=== PATIENT | female | born 1985 | race Caucasian/White ===

== ENCOUNTER → 2016-08-05 | Outpatient (REF) | payer BC ==
[~2016-08-05] MED LIST: ACET50TA PO; IBUP80TA PO; VITAPRTA PO
== END ==
LOC: M LAB REF 15:11
PROVIDERS: ATTEND Specialist
DX: Z12.4 Encounter for screening for malignant neoplasm of cervix (principal); R85.612 Low grade squamous intraepithelial lesion on cytologic smear of anus (LGSIL)
CPT/HCPCS: 87491; 87591; G0123

== ENCOUNTER → 2016-08-20 | Outpatient (REF) | payer BC | LOC: M LAB REF 10:11 | PROVIDERS: ATTEND Physician Assistant Medical | DX: J02.9 Acute pharyngitis, unspecified (principal) ==

== ENCOUNTER → 2016-09-23 | Outpatient (REF) | payer BC | LOC: M LAB REF 16:49 | PROVIDERS: ATTEND Specialist | DX: R87.612 Low grade squamous intraepithelial lesion on cytologic smear of cervix (LGSIL) (principal) ==

== ENCOUNTER → 2016-10-15 | Outpatient (REF) | payer BC ==
[2016-10-15 20:20] LABS: BASO % 0.4 % (0.0-1.0); EOS # 0.1 K/mm3 (0.0-0.50); EOS % 1.7 % (0.0-3.0); LARGE UNSTAINED CELL # 0.2 K/mm3 (0.0-0.4); LARGE UNSTAINED CELL % 1.9 % (0.0-4.0); LYMPH # 2.6 K/mm3 (1.5-4.5); LYMPH % 31.5 % (24.0-44.0); MEAN CORPUSCULAR HEMOGLOBIN 27.4 pg (27.0-33.0); MEAN CORPUSCULAR HGB CONC 31.7 g/dl (32.0-36.5); MEAN CORPUSCULAR VOLUME 86.6 fl (80.0-96.0); MONO # 0.3 K/mm3 (0.0-0.8); NEUTROPHILS # 4.7 K/mm3 (1.8-7.7); NEUTROPHILS % 60.4 % (36.0-66.0); PLATELET COUNT, AUTOMATED 275 k/mm3 (150-450); RED CELL DISTRIBUTION WIDTH 13.6 % (11.5-14.5); WHITE BLOOD COUNT 7.8 K/mm3 (4.0-10.0)
[2016-10-15 20:53] LABS: ALBUMIN 3.8 GM/DL (3.2-5.2); ALBUMIN/GLOBULIN RATIO 0.93 (1.00-1.93); ALKALINE PHOSPHATASE 67 U/L (45-117); ALT/SGPT 33 U/L (12-78); ANION GAP 5 MEQ/L (8-16); AST/SGOT 17 U/L (15-37); BILIRUBIN,TOTAL 0.8 MG/DL (0.2-1.0); BLOOD UREA NITROGEN 15 MG/DL (7-18); CALCIUM LEVEL 9.1 MG/DL (8.5-10.1); CARBON DIOXIDE LEVEL 29 MEQ/L (21-32); CHLORIDE LEVEL 106 MEQ/L (98-107); CHOLESTEROL LEVEL 172 MG/DL (<200); CREATININE FOR GFR 0.75 MG/DL (0.55-1.02); GLOMERULAR FILTRATION RATE > 60.0 (>60); GLUCOSE, FASTING 81 MG/DL (70-105); POTASSIUM SERUM 5.1 MEQ/L (3.5-5.1); SODIUM LEVEL 140 MEQ/L (136-145); TOTAL PROTEIN 7.9 GM/DL (6.4-8.2); TRIGLYCERIDES LEVEL 95 MG/DL (<150)
== END ==
LOC: M LABDRWAD 10:26
PROVIDERS: ATTEND Family Medicine
DX: Z00.00 Encounter for general adult medical examination without abnormal findings (principal)

== ENCOUNTER → 2017-04-05 | Outpatient (CLI) | payer BC ==
--- NOTE | 2017-04-05 11:40 | REP ---
LEFT WRIST, FOUR VIEW: HISTORY: Pain. There is no acute fracture or dislocation. The joint spaces are normal in appearance. IMPRESSION: There is no acute fracture or dislocation. Signed by Wale Courtney MD 04/05/2017 11:49 A
== END ==
LOC: M ADAMS 10:34
PROVIDERS: ATTEND Physician Assistant
DX: M25.532 Pain in left wrist (principal)

== ENCOUNTER → 2017-05-20 | Outpatient (REF) | payer BC | LOC: M LAB REF 13:11 | DX: Z12.4 Encounter for screening for malignant neoplasm of cervix (principal) | CPT/HCPCS: G0123 ==

== ENCOUNTER → 2018-06-22 | Outpatient (REF) | payer BC ==
[2018-06-25 00:06] LABS: HPV HYBRID CAPTURE II Negative (Negative)
== END ==
LOC: M LAB REF 19:04
PROVIDERS: ATTEND Specialist
DX: Z12.4 Encounter for screening for malignant neoplasm of cervix (principal)
CPT/HCPCS: 87624; G0123

== ENCOUNTER → 2018-07-04 | Outpatient (CLI) | payer BC | LOC: M LAB 11:27 | PROVIDERS: ATTEND Specialist | DX: Z01.89 Encounter for other specified special examinations (principal) ==

== ENCOUNTER → 2018-10-18 | Outpatient (CLI) | payer BC, OTHER ==
[~2018-10-18] MED LIST changes: -ACET50TA PO; +MAPA500T17 PO
[2018-10-18 09:28] LABS: HEMATOCRIT 35.2 % (36.0-47.0); MEAN CORPUSCULAR HEMOGLOBIN 25.9 pg (27.0-33.0); MEAN CORPUSCULAR HGB CONC 31.3 g/dl (32.0-36.5); MEAN CORPUSCULAR VOLUME 82.8 fl (80.0-96.0); PLATELET COUNT, AUTOMATED 268 10^3/uL (150-450); RED BLOOD COUNT 4.25 10^6/uL (4.00-5.40); WHITE BLOOD COUNT 5.6 10^3/uL (4.0-10.0)
[2018-10-18 10:05] LABS: ALBUMIN 3.7 GM/DL (3.2-5.2); ALT/SGPT 33 U/L (12-78); BILIRUBIN,TOTAL 0.9 MG/DL (0.2-1.0); BLOOD UREA NITROGEN 13 MG/DL (7-18); CALCIUM LEVEL 9.1 MG/DL (8.5-10.1); CARBON DIOXIDE LEVEL 28 MEQ/L (21-32); CHLORIDE LEVEL 107 MEQ/L (98-107); CREATININE FOR GFR 0.73 MG/DL (0.55-1.30); GLOMERULAR FILTRATION RATE > 60.0 (>60); GLUCOSE, FASTING 89 MG/DL (70-100); HCG, SERUM QUANTITATIVE < 1.0 MIU/ML; POTASSIUM SERUM 4.3 MEQ/L (3.5-5.1); SODIUM LEVEL 140 MEQ/L (136-145); THYROID STIMULATING HORMONE 0.924 uIU/ML (0.358-3.740); TOTAL PROTEIN 7.3 GM/DL (6.4-8.2)
[2018-10-18 10:07] LABS: TESTOSTERONE 16 NG/DL (14-76); TOTAL 25(OH) VITAMIN D 24.3 NG/ML (30.0-100.0)
[2018-10-18 10:08] LABS: PROGESTERONE 0.21 NG/ML; PROLACTIN 6.7 NG/ML
[2018-10-18 10:10] LABS: FOLLICLE STIMULATING HORMONE 7.3 mIU/mL
[2018-10-18 10:16] LABS: RUBELLA IgG QUALITATIVE IMMUNE (IMMUNE)
[2018-10-18 10:20] LABS: HEPATITIS B SURFACE ANTIGEN NEGATIVE (NEGATIVE)
[2018-10-18 10:48] LABS: HIV 1&2 SCREEN CENTAUR NEGATIVE (NEGATIVE)
[2018-10-22 14:10] LABS: ANTI MULLERIAN HORMONE 1.16 ng/mL (.); DEHYDROEPIANDROSTERONE SULFATE 136.5 ug/dL (84.8-378.0); HERPES ZOSTER, VARICELLA IgG 1056 index (Immune >165); HERPES ZOSTER, VARICELLA IgM <0.91 index (0.00-0.90)
== END ==
LOC: M LAB 08:35
PROVIDERS: ATTEND Obstetrics & Gynecology Reproductive Endocrinology
DX: Z31.41 Encounter for fertility testing (principal); E28.9 Ovarian dysfunction, unspecified

== ENCOUNTER → 2018-10-19 | Outpatient (CLI) | payer BC, OTHER ==
[~2018-10-19] MED LIST changes: +ISOVUE-370 76% 100ML VIAL (Q9967) As Ordered ONE
--- NOTE | 2018-10-19 14:50 | REP ---
HYSTEROSALPINGOGRAM: HISTORY: Status post tubal ligation for possible reversal. FINDINGS: The endometrium is cannulated and contrast was injected by the referring systems project manager. Fluoroscopic spot radiographs confirm the presence of bilateral tubal occlusion with metallic clamps present bilaterally. The uterus is tipped somewhat to the right and is unremarkable. The isthmic segments of the fallopian tubes are opacified extending out to the level of the clamps on each side. There is no evidence of hydrosalpinx or other morphologic abnormality. Fluoroscopy time is 0.4 minutes. IMPRESSION: Bilateral surgical fallopian tubal occlusion. No other abnormality. Electronically Signed by Jaswant Lux MD 10/19/2018 04:15 P
== END ==
LOC: M RADPRO 12:21
PROVIDERS: ATTEND Specialist
DX: N97.1 Female infertility of tubal origin (principal)
CPT/HCPCS: 58340; 74740; Q9967

== ENCOUNTER → 2018-10-28 | Outpatient (REF) | payer BC, OTHER ==
[~2018-10-28] MED LIST changes: -ISOVUE-370 76% 100ML VIAL (Q9967) As Ordered ONE
== END ==
LOC: M LAB REF 09:24
PROVIDERS: ATTEND Obstetrics & Gynecology Reproductive Endocrinology
DX: E28.9 Ovarian dysfunction, unspecified (principal)

== ENCOUNTER → 2018-11-09 | Outpatient (CLI) | payer BC, OTHER ==
[2018-11-09 13:56] LABS: HCG, SERUM QUANTITATIVE < 1.0 MIU/ML
[2018-11-09 13:58] LABS: ESTRADIOL 40.9 PG/ML; LUTEINIZING HORMONE 5.2 mIU/mL; PROGESTERONE 0.28 NG/ML
== END ==
LOC: M LAB 12:52
PROVIDERS: ATTEND Obstetrics & Gynecology Reproductive Endocrinology
DX: E28.9 Ovarian dysfunction, unspecified (principal)

== ENCOUNTER → 2018-11-09 | Outpatient (CLI) | payer BC, OTHER ==
--- NOTE | 2018-11-09 16:32 | REP ---
Pelvic ultrasound for follicle analysis, and endovaginal assessment: Right ovary: There are no follicles greater than 10 mm. There are two follicles measuring up to 5 mm. Right ovary measures 3.2 x 1.5 x 1.2 cm. Left ovary: There are no follicles greater than 10 mm. No follicles less than 10 mm are identified. The left ovary measures 1.9 x 1.0 x 1.0 cm. The endometrium measures 3.3 mm thickness with a homogeneous appearance. The uterus is anteverted and measures 8.1 x 4.4 x 4.8 cm and is normal size. Electronically Signed by Robson Anne MD 11/09/2018 04:24 P
== END ==
LOC: M RAD 15:32
PROVIDERS: ATTEND Obstetrics & Gynecology Reproductive Endocrinology
DX: E28.9 Ovarian dysfunction, unspecified (principal)

== ENCOUNTER → 2018-11-15 | Outpatient (CLI) | payer BC, OTHER ==
--- NOTE | 2018-11-15 07:51 | REP ---
Clinical: Infertility. Technique: Transvaginal ultrasound examination. Comparison: 11/09/2018. Findings: Normal anteverted uterus measures 9.3 x 4.6 x 4.9 cm. Endometrial complex measures 5.6 mm thickness. No obvious uterine/endometrial abnormality noted. Right ovary measures 2.9 x 1.8 x 2.2 cm and includes 0.0 x 8.9 mm follicle along with two sub centimeter follicles between 5.0 and 7.7 mm. Left ovary measures 2.4 x 1.8 x 1.4 cm with approximately six sub centimeter follicles measuring between 1.2 and 6.3 mm. Impression: Follicular study as noted above. Electronically Signed by Giovanni Tabor MD 11/15/2018 07:43 A
[2018-11-15 10:54] LABS: ESTRADIOL 283.8 PG/ML; LUTEINIZING HORMONE 2.3 mIU/mL; PROGESTERONE 0.21 NG/ML
== END ==
LOC: M RAD 06:37
PROVIDERS: ATTEND Obstetrics & Gynecology Reproductive Endocrinology
DX: N83.01 Follicular cyst of right ovary (principal); N83.02 Follicular cyst of left ovary

== ENCOUNTER → 2018-11-17 | Outpatient (CLI) | payer BC, OTHER ==
--- NOTE | 2018-11-17 08:09 | REP ---
Clinical: Infertility. Comparison: 11/15/2018. Technique: Transvaginal examination. Findings: Anteverted uterus measures 10.3 x 5.3 x 5.3 cm. Endometrial complex measures 9.8 mm thickness and a small amount of endocervical fluid is appreciated. Right ovary measures 3.5 x 2.1 x 1.7 cm with 11.1 mm and 10.4 mm follicles as well as 14 sub centimeter follicles measuring between 2.9 and 8.9 mm. Left ovary measures 2.9 x 1.8 x 1.9 cm and includes 12.7 mm and 10.5 mm follicles as well as 11 sub centimeter follicles measuring between 4.0 and 8.6 mm. No pelvic free fluid. Impression: 1. Uterus and bilateral ovaries as described above. 2. Predominately sub centimeter follicles noted bilaterally. Electronically Signed by Giovanni Tabor MD 11/17/2018 08:00 A
[2018-11-17 09:48] LABS: ESTRADIOL 670.9 PG/ML; LUTEINIZING HORMONE 1.3 mIU/mL; PROGESTERONE 0.21 NG/ML
== END ==
LOC: M RAD 06:40
PROVIDERS: ATTEND Obstetrics & Gynecology Reproductive Endocrinology
DX: N83.01 Follicular cyst of right ovary (principal); N83.02 Follicular cyst of left ovary

== ENCOUNTER → 2018-11-19 | Outpatient (CLI) | payer BC, OTHER ==
--- NOTE | 2018-11-19 07:56 | REP ---
Clinical: Infertility. Technique: Transvaginal examination. Comparison: 11/17/2018. Findings: Anteverted uterus measures 10.6 x 5.3 x 5.4 cm. Endometrial complex measures 9.2 mm thickness with trace endocervical fluid noted. No free pelvic fluid. Right ovary measures 4.4 x 3.4 x 2.7 cm and includes 16 x 15 mm and 12 x 13 mm follicles along with seven sub centimeter follicles between 4.2 and 9.8 mm each. Left ovary measures 3.4 x 2.0 x 2.1 cm includes 11 x 5.6 mm and 13 x 8.8 mm follicles along with seven sub centimeter follicles between 2.3 and 3.3 mm each. Impression: Follicular study as described above. Electronically Signed by Giovanni Tabor MD 11/19/2018 07:47 A
[2018-11-19 09:38] LABS: ESTRADIOL 1428.8 PG/ML; LUTEINIZING HORMONE 1.9 mIU/mL; PROGESTERONE 0.52 NG/ML
== END ==
LOC: M RAD 06:42
PROVIDERS: ATTEND Obstetrics & Gynecology Reproductive Endocrinology
DX: N97.9 Female infertility, unspecified (principal)

== ENCOUNTER → 2019-01-24 | Outpatient (CLI) | payer BC, OTHER ==
[2019-01-24 11:40] LABS: THYROID STIMULATING HORMONE 1.22 uIU/ML (0.358-3.740)
[2019-01-24 13:45] LABS: ESTRADIOL 112.9 PG/ML; PROGESTERONE 37.82 NG/ML
== END ==
LOC: M LAB 10:19
PROVIDERS: ATTEND Obstetrics & Gynecology Reproductive Endocrinology
DX: E28.9 Ovarian dysfunction, unspecified (principal)

== ENCOUNTER → 2019-02-01 | Outpatient (CLI) | payer BC, OTHER ==
[2019-02-01 09:10] LABS: HCG, SERUM QUANTITATIVE < 1.0 MIU/ML
[2019-02-01 09:19] LABS: PROGESTERONE 36.09 NG/ML
== END ==
LOC: M LAB 08:09
PROVIDERS: ATTEND Obstetrics & Gynecology Reproductive Endocrinology
DX: E28.9 Ovarian dysfunction, unspecified (principal)

== ENCOUNTER → 2019-02-10 | Outpatient (CLI) | payer BC, OTHER ==
--- NOTE | 2019-02-08 18:22 | REPVR ---
EXAM: US Pelvis, Transvaginal EXAM DATE/TIME: 02/08/2019 6:11 PM CLINICAL HISTORY: 33 years old, female; Screening exam; Follicular study; Additional info: Ovarian dysfunction TECHNIQUE: Imaging protocol: Real-time transvaginal pelvic ultrasound with image documentation. Transvaginal imaging was used for better evaluation of the endometrium and adnexa. COMPARISON: Transvaginal NON- US 11/19/2018 7:15 AM FINDINGS: Uterus/cervix: Uterus measures 9.2 x 5.2 x 6 cm. Endometrial echocomplex measures 5.7 mm. Right adnexa: Right ovary measures 2.8 x 1.6 x 2.1 cm. 3 follicles demonstrated in the right ovary ranging from 5-8 mm. Left adnexa: Left ovary measures 2.6 x 1.5 x 2.5 cm. No follicles demonstrated. Free fluid: None. IMPRESSION: Small follicles in the right ovary. No follicles demonstrated in the left ovary. Examination otherwise unremarkable. Electronically signed by: Jessee Ashraf On 02/08/2019 18:21:34 PM
[2019-02-08 19:52] LABS: HCG, SERUM QUANTITATIVE < 1.0 MIU/ML; THYROID STIMULATING HORMONE 0.565 uIU/ML (0.358-3.740)
[2019-02-08 19:55] LABS: PROGESTERONE 0.29 NG/ML
[2019-02-08 19:56] LABS: LUTEINIZING HORMONE 6.6 mIU/mL
[2019-02-08 19:57] LABS: ESTRADIOL 32.1 PG/ML; FOLLICLE STIMULATING HORMONE 10.1 mIU/mL
== END ==
LOC: M RAD 13:55
PROVIDERS: ATTEND Obstetrics & Gynecology Reproductive Endocrinology
DX: E28.9 Ovarian dysfunction, unspecified (principal)

== ENCOUNTER → 2019-02-16 | Outpatient (CLI) | payer BC, OTHER ==
--- NOTE | 2019-02-16 07:27 | REPVR ---
PROCEDURE INFORMATION: Exam: US Pelvis, Transvaginal Exam date and time: 02/16/2019 6:43 AM Clinical history: 33 years old, female; Screening exam; Thickness of lining; Additional info: Infertility TECHNIQUE: Imaging protocol: Real-time transvaginal pelvic ultrasound with image documentation. Transvaginal imaging was used for better evaluation of the endometrium and adnexa. COMPARISON: Transvaginal NON- US 02/08/2019 5:41 PM FINDINGS: Uterus/cervix: The uterus is anteverted and measures 10.5 x 4.7 x 5.5 cm. The endometrium stripe measures 10 mm in thickness and has a triple line appearance. No masses are identified in the uterus. Right adnexa: The right ovary appears measures 2.7 x 2.2 x 3.0 cm. Two follicles are seen in the right ovary, measuring 12.4 x 6.9 mm and 10.4 x 6.8 mm. Left adnexa: The left ovary appears measures 2.6 x 1.4 x 2.1 cm. Small follicles are seen within the left ovary, numbering 7, ranging from 2.4-4.9 mm. Free fluid: No significant fluid is seen in the cul-de-sac. IMPRESSION: 1. Endometrial stripe measures 10 mm. 2. Small ovarian follicles, with the largest follicle located in the right ovary measuring 12 x 7 mm. Electronically signed by: Yuly Lucas On 02/16/2019 07:26:52 AM
[2019-02-16 08:55] LABS: ESTRADIOL 103.2 PG/ML; LUTEINIZING HORMONE 10.3 mIU/mL; PROGESTERONE 0.21 NG/ML
== END ==
LOC: M RAD 06:00
PROVIDERS: ATTEND Obstetrics & Gynecology Reproductive Endocrinology
DX: E28.9 Ovarian dysfunction, unspecified (principal)

== ENCOUNTER → 2019-03-02 | Outpatient (CLI) | payer BC, OTHER ==
[2019-03-02 07:20] LABS: THYROID STIMULATING HORMONE 1.48 uIU/ML (0.358-3.740)
[2019-03-02 08:42] LABS: PROGESTERONE 22.86 NG/ML
[2019-03-02 08:43] LABS: ESTRADIOL 74.3 PG/ML
== END ==
LOC: M LAB 06:11
PROVIDERS: ATTEND Obstetrics & Gynecology Reproductive Endocrinology
DX: E28.9 Ovarian dysfunction, unspecified (principal)

== ENCOUNTER → 2019-03-07 | Outpatient (CLI) | payer BC, OTHER ==
[2019-03-07 07:02] LABS: HCG, SERUM QUANTITATIVE < 1.0 MIU/ML
[2019-03-07 10:40] LABS: PROGESTERONE 35.48 NG/ML
== END ==
LOC: M LAB 06:08
PROVIDERS: ATTEND Obstetrics & Gynecology Reproductive Endocrinology
DX: E28.9 Ovarian dysfunction, unspecified (principal)

== ENCOUNTER → 2019-03-11 | Outpatient (CLI) | payer BC, OTHER ==
[2019-03-11 07:29] LABS: HCG, SERUM QUANTITATIVE < 1.0 MIU/ML; THYROID STIMULATING HORMONE 0.635 uIU/ML (0.358-3.740)
--- NOTE | 2019-03-11 08:30 | REP ---
Transvaginal pelvic sonography: History: Ovarian dysfunction, follicle study. Findings: Uterine dimensions are 9.5 x 4.9 x 5.0 cm. Endometrial stripe is 0.5 cm thick. No focal uterine mass is seen. No free fluid is noted. Dimensions of the right ovary today are 2.2 x 1.4 x 2.0 cm. The right ovary contains no follicles greater than a centimeter. There are four follicles visible in the right ovary ranging in size from 0.2-0.4 cm. The dimensions of the left ovary are 2.0 x 1.6 x 1.5 cm. There are no follicles over a centimeter in the left ovary. The left ovary contains four follicles measuring between 0.2 and 0.3 cm. Impression: Ovarian follicle study as above. Electronically Signed by Jaswant Lux MD 03/11/2019 08:21 A
[2019-03-11 10:22] LABS: PROGESTERONE 1.27 NG/ML
[2019-03-11 10:23] LABS: FOLLICLE STIMULATING HORMONE 6.5 mIU/mL; LUTEINIZING HORMONE 3.8 mIU/mL
== END ==
LOC: M RAD 06:04
PROVIDERS: ATTEND Obstetrics & Gynecology Reproductive Endocrinology
DX: N97.9 Female infertility, unspecified (principal)

== ENCOUNTER → 2019-03-18 | Outpatient (CLI) | payer BC, OTHER ==
--- NOTE | 2019-03-18 08:37 | REPVR ---
PROCEDURE INFORMATION: Exam: US Pelvis, Transvaginal Exam date and time: 03/18/2019 7:26 AM Clinical history: 33 years old, female; Screening exam; Fertility treatment; Additional info: Infertility TECHNIQUE: Imaging protocol: Real-time transvaginal pelvic ultrasound with image documentation. Transvaginal imaging was used for better evaluation of the endometrium and adnexa. COMPARISON: Transvaginal NON- US 03/11/2019 6:29 AM FINDINGS: Uterus/cervix: Endometrial stripe is normal measuring 5.7 mm. Uterus is unremarkable measuring 9.8 x 5.1 x 5.2. Right adnexa: Right ovary measures 1.4 x 1.4 x 1.3 cm. Normal follicles are seen Left adnexa: Left ovary measures 1.9 x 1.4 x 1.3 cm. Dominant follicle measuring up to 5 x 1.5 x 4.0 mm. Free fluid: No free fluid. IMPRESSION: No acute finding. Electronically signed by: Marci Stratton On 03/18/2019 08:37:42 AM
[2019-03-18 10:16] LABS: ESTRADIOL 94.1 PG/ML; PROGESTERONE 0.21 NG/ML
== END ==
LOC: M RAD 06:33
PROVIDERS: ATTEND Obstetrics & Gynecology Reproductive Endocrinology
DX: E28.9 Ovarian dysfunction, unspecified (principal)

== ENCOUNTER → 2019-03-25 | Outpatient (CLI) | payer BC, OTHER ==
--- NOTE | 2019-03-25 08:25 | REP ---
Clinical: Infertility. Technique: Transvaginal ultrasound examination. Findings: Anteverted uterus measures 10.2 x 5.5 x 6.0 cm. Endometrial complex measures 10.7 mm thickness excluding a small amount of endocervical fluid. Right ovary measures 1.9 x 1.1 x 1.6 cm and includes five sub centimeter follicles measuring between 2.1 and 3.7 mm. Left ovary measures 2.9 x 1.3 x 1.5 cm and includes three sub centimeter follicles measuring between 1.5 and 1.9 mm. Impression: Follicular study with sub centimeter follicles noted. Electronically Signed by Giovanni Tabor MD 03/25/2019 08:17 A
[2019-03-25 09:25] LABS: ESTRADIOL 1763.6 PG/ML; LUTEINIZING HORMONE 5.7 mIU/mL; PROGESTERONE 0.21 NG/ML
== END ==
LOC: M RAD 06:39
PROVIDERS: ATTEND Obstetrics & Gynecology Reproductive Endocrinology
DX: E28.9 Ovarian dysfunction, unspecified (principal)

== ENCOUNTER → 2019-04-04 | Outpatient (CLI) | payer BC, OTHER ==
[2019-04-04 09:33] LABS: THYROID STIMULATING HORMONE 1.05 uIU/ML (0.358-3.740)
[2019-04-04 10:23] LABS: ESTRADIOL 639.8 PG/ML; PROGESTERONE 33.17 NG/ML
== END ==
LOC: M LAB 08:17
PROVIDERS: ATTEND Obstetrics & Gynecology Reproductive Endocrinology
DX: E28.9 Ovarian dysfunction, unspecified (principal)

== ENCOUNTER → 2019-04-08 | Outpatient (CLI) | payer BC, OTHER ==
[2019-04-08 09:16] LABS: PROGESTERONE 32.52 NG/ML
== END ==
LOC: M LAB 06:40
PROVIDERS: ATTEND Obstetrics & Gynecology Reproductive Endocrinology
DX: E28.9 Ovarian dysfunction, unspecified (principal)

== ENCOUNTER → 2019-04-15 | Outpatient (CLI) | payer BC, OTHER ==
[2019-04-15 07:19] LABS: HCG, SERUM QUANTITATIVE < 1.0 MIU/ML; THYROID STIMULATING HORMONE 0.742 uIU/ML (0.358-3.740)
--- NOTE | 2019-04-15 08:34 | REP ---
Transvaginal pelvic sonography: History: Ovarian follicle study. Ovarian dysfunction. Findings: Transvaginal imaging demonstrates uterine dimensions to be 10.5 x 5.1 x 6.7 cm per endometrial stripe is 1.4 cm thick. No focal uterine mass is seen. No free fluid is seen in the cul-de-sac. Limited views of the right ovary were achieved today. Its dimensions are 2.3 x 1.8 x 2.1 cm. There are no follicles in the right ovary visible. Left ovary has dimensions of 2.2 x 1.4 x 1.5 cm. There are no follicles measuring greater than a centimeter in the left ovary. The left ovary contains five follicles ranging in size from 0.2-0.4 cm. Impression: Ovarian follicle study as above. Limited visualization of the right ovary. No follicles over a centimeter seen on either side. Electronically Signed by Jaswant Lux MD 04/15/2019 08:25 A
[2019-04-15 12:06] LABS: LUTEINIZING HORMONE 1.2 mIU/mL; PROGESTERONE 1.62 NG/ML
[2019-04-15 12:07] LABS: ESTRADIOL 21.2 PG/ML; FOLLICLE STIMULATING HORMONE 3.4 mIU/mL
== END ==
LOC: M RAD 06:19
PROVIDERS: ATTEND Obstetrics & Gynecology Reproductive Endocrinology
DX: E28.9 Ovarian dysfunction, unspecified (principal)

== ENCOUNTER → 2019-04-18 | Outpatient (CLI) | payer BC, OTHER ==
--- NOTE | 2019-04-18 07:15 | REPVR ---
PROCEDURE INFORMATION: Exam: US Pelvis, Transvaginal Exam date and time: 04/18/2019 6:32 AM Age: 33 years old Clinical history: Screening exam; Infertility, endometrial thickness TECHNIQUE: Imaging protocol: Real-time transvaginal pelvic ultrasound with image documentation. Transvaginal imaging was used for better evaluation of the endometrium and adnexa. COMPARISON: Transvaginal NON- US 04/15/2019 6:35 AM (report not provided) FINDINGS: Uterus/cervix: The uterus measures 9.5 x 4.7 x 5.1 cm. It is homogeneous in echotexture, without demonstrated lesion. The endometrium measures 8 mm in thickness. Right adnexa: The right ovary measures 2.2 x 3.4 x 2.6 cm. It contains 5 follicles measuring between 2.2 and 4.1 mm. Left adnexa: The left ovary measures 4.6 x 3.2 x 3.7 cm. It contains 13 follicles measuring between 1.6 and 5.1 mm. Free fluid: No significant free fluid is demonstrated. IMPRESSION: Multiple bilateral ovarian follicles as above. Electronically signed by: Filiberto Harley On 04/18/2019 07:15:52 AM
== END ==
LOC: M RAD 06:02
PROVIDERS: ATTEND Obstetrics & Gynecology Reproductive Endocrinology
DX: E28.9 Ovarian dysfunction, unspecified (principal)

== ENCOUNTER → 2019-04-25 | Outpatient (CLI) | payer BC, OTHER ==
--- NOTE | 2019-04-25 07:45 | REPVR ---
PROCEDURE INFORMATION: Exam: US Pelvis, Transvaginal Exam date and time: 04/25/2019 7:26 AM Age: 33 years old Clinical history: Screening exam; Fertility study; Additional info: Infertility TECHNIQUE: Imaging protocol: Real-time transvaginal pelvic ultrasound with image documentation. Transvaginal imaging was used for better evaluation of the endometrium and adnexa. COMPARISON: Transvaginal NON- US 04/18/2019 6:11 AM FINDINGS: Uterus/cervix: The uterus measures 10.7 x 4.9 x 5.2 cm. It is homogeneous in echotexture, without demonstrated lesion. The endometrium measures 12 mm in thickness, previously measuring 8 mm, and now contains small fluid. Right adnexa: The right ovary measures 3.0 x 1.6 x 1.0 cm. It contains several follicles measuring between 1.3 and 2.5 cm. Left adnexa: The left ovary measures 1.2 x 1.9 x 1.4 cm. It contains some follicles measuring between 1.7 and 3.5 mm. Free fluid: None demonstrated. IMPRESSION: 1. Multiple bilateral ovary follicles as described. 2. Endometrium 12 mm in thickness, containing small fluid. Electronically signed by: Filiberto Harley On 04/25/2019 07:44:44 AM
[2019-04-25 09:23] LABS: ESTRADIOL 475.8 PG/ML; LUTEINIZING HORMONE 4.8 mIU/mL; PROGESTERONE 0.21 NG/ML
== END ==
LOC: M RAD 06:24
PROVIDERS: ATTEND Obstetrics & Gynecology Reproductive Endocrinology
DX: E28.9 Ovarian dysfunction, unspecified (principal)

== ENCOUNTER → 2019-04-28 | Outpatient (CLI) | payer BC, OTHER ==
--- NOTE | 2019-04-28 08:18 | REP ---
Clinical: Infertility. Technique: Transvaginal ultrasound examination with color evaluation. Findings: Anteverted uterus measures 10.9 x 5.3 x 6.0 cm. Endometrial complex measures 12.5 mm thickness excluding a small amount of endocervical fluid. Right ovary measures 2.2 x 1.8 x 1.3 cm and includes two follicles measuring 4.8 and 5.1 mm diameter. Left ovary measures 2.2 x 1.2 x 1.3 cm and includes two follicles measuring 4.4 and 4.6 mm diameter. Impression: Few subcentimeter ovarian follicles. Electronically Signed by Giovanni Tabor MD 04/28/2019 08:09 A
[2019-04-28 10:14] LABS: ESTRADIOL 1097.6 PG/ML; LUTEINIZING HORMONE 3.6 mIU/mL; PROGESTERONE 0.21 NG/ML
== END ==
LOC: M RAD 06:50
PROVIDERS: ATTEND Obstetrics & Gynecology Reproductive Endocrinology
DX: N97.9 Female infertility, unspecified (principal)

== ENCOUNTER → 2019-05-10 | Outpatient (CLI) | payer BC, OTHER ==
[2019-05-10 07:19] LABS: THYROID STIMULATING HORMONE 1.51 uIU/ML (0.358-3.740)
[2019-05-10 10:35] LABS: PROGESTERONE 49.44 NG/ML
== END ==
LOC: M LAB 06:13
PROVIDERS: ATTEND Obstetrics & Gynecology Reproductive Endocrinology
DX: E28.9 Ovarian dysfunction, unspecified (principal)

== ENCOUNTER → 2019-05-16 | Outpatient (CLI) | payer BC, OTHER ==
[2019-05-16 09:55] LABS: PROGESTERONE 50.05 NG/ML
== END ==
LOC: M LAB 06:11
PROVIDERS: ATTEND Obstetrics & Gynecology Reproductive Endocrinology
DX: E28.9 Ovarian dysfunction, unspecified (principal)

== ENCOUNTER → 2019-05-19 | Outpatient (CLI) | payer BC, OTHER ==
[2019-05-19 08:04] LABS: THYROID STIMULATING HORMONE 0.941 uIU/ML (0.358-3.740)
[2019-05-19 09:26] LABS: PROGESTERONE 42.56 NG/ML
[2019-05-19 09:49] LABS: ESTRADIOL 639.5 PG/ML
== END ==
LOC: M LAB 07:06
PROVIDERS: ATTEND Obstetrics & Gynecology Reproductive Endocrinology
DX: Z32.01 Encounter for pregnancy test, result positive (principal)

== ENCOUNTER → 2019-05-27 | Outpatient (CLI) | payer BC, OTHER ==
[2019-05-27 07:51] LABS: THYROID STIMULATING HORMONE 1.68 uIU/ML (0.358-3.740)
--- NOTE | 2019-05-27 08:51 | REP ---
Transvaginal pelvic sonography: History: Supervision of . Embryo transferred May 03, 2019. Findings: Uterine dimensions are 9.3 x 6.1 x 5.6 cm. There is an intrauterine gestational sac containing a yolk sac but no definite embryonic pole. By mean sac size diameter which is 7.9 mm, this would correspond with 6-awcp-6-day gestational age estimate. There is a 1.7 mm echogenic structure adjacent to the the yolk sac which could be a tiny embryonic pole. This is too small to characterize. No cardiac motion or motion could be observed. There is a small amount of anechoic fluid around the gestational sac. The right ovary could not be seen. The left ovary is normal measuring 1.9 x 1.0 x 1.4 cm. No free fluid is seen in the cul-de-sac. Impression: 7-qdvq-3-day size gestational sac in the endometrium with a yolk sac . There is a 1.7 mm echogenic structure adjacent to the yolk sac, too small to definitely characterize as embryonic pole. No cardiac motion or motion observed. Clinical and sonographic followup is advised. Electronically Signed by Jaswant Lux MD 05/27/2019 08:43 A
[2019-05-27 09:23] LABS: PROGESTERONE 49.89 NG/ML
[2019-05-27 09:24] LABS: ESTRADIOL 752.3 PG/ML
== END ==
LOC: M RAD 06:39
PROVIDERS: ATTEND Obstetrics & Gynecology Reproductive Endocrinology
DX: O09.00 Supervision of pregnancy with history of infertility, unspecified trimester (principal)

== ENCOUNTER → 2019-06-03 | Outpatient (CLI) | payer BC, OTHER ==
--- NOTE | 2019-06-03 07:29 | REPVR ---
PROCEDURE INFORMATION: Exam: US , Transvaginal Exam date and time: 06/03/2019 6:52 AM Age: 33 years old Clinical indication: Lmp or gestational age (in weeks): 6w 1d; Other: Dating; ; Additional info: after positive result TECHNIQUE: Imaging protocol: Real-time transvaginal obstetrical ultrasound of the maternal pelvis and a first trimester with image documentation. Transvaginal imaging was used for better evaluation of the fetus and adnexa. COMPARISON: TRANSVAGINAL US 05/27/2019 7:04 AM (report not provided) FINDINGS: GESTATION: Gestation: Single intrauterine gestation Heart rate: 116 beats per minute Placenta: No demonstrated subchorionic hemorrhage. BIOMETRY: Estimated gestational age: Rosman-rump length 4.8 mm, corresponding to an estimated gestational age of 6 weeks 1 day. MATERNAL: Cervix: Cervix appears closed, was not measured. IMPRESSION: Single viable intrauterine gestation with estimated gestational age of 6 weeks 1 day. As heart rate measures 116 beats per minute, followup is recommended in 4-7 days to document continued viability. Electronically signed by: Filiberto Harley On 06/03/2019 07:28:45 AM
[2019-06-03 07:49] LABS: THYROID STIMULATING HORMONE 1.23 uIU/ML (0.358-3.740)
[2019-06-03 16:00] LABS: ESTRADIOL 1241.9 PG/ML; PROGESTERONE 50.89 NG/ML
== END ==
LOC: M RAD 06:10
PROVIDERS: ATTEND Obstetrics & Gynecology Reproductive Endocrinology
DX: Z32.01 Encounter for pregnancy test, result positive (principal)

== ENCOUNTER → 2019-06-10 | Outpatient (CLI) | payer BC, OTHER | LOC: M LAB 06:13 | PROVIDERS: ATTEND Physician Assistant | DX: E55.9 Vitamin D deficiency, unspecified (principal) ==

== ENCOUNTER → 2019-06-10 | Outpatient (CLI) | payer BC, OTHER ==
--- NOTE | 2019-06-10 07:24 | REPVR ---
PROCEDURE INFORMATION: Exam: US , Transvaginal Exam date and time: 06/10/2019 6:52 AM Age: 33 years old Clinical indication: Lmp or gestational age (in weeks): 7w 2d; Other: Dating, HX of infertility; ; Additional info: with HX of inf TECHNIQUE: Imaging protocol: Real-time transvaginal obstetrical ultrasound of the maternal pelvis and a first trimester with image documentation. Transvaginal imaging was used for better evaluation of the fetus and adnexa. COMPARISON: TRANSVAGINAL US 06/03/2019 6:31 AM FINDINGS: GESTATION: Gestation: An intrauterine gestational sac is again identified with a pole and yolk sac visualized. No hemorrhage is seen around the gestational sac. Heart rate: A heartbeat was detected with a rate of 153 bpm. BIOMETRY: [place]-Rump length: The crown-rump length measures 11.4 mm, corresponding to a 7 week 2 day gestation. Estimated due date: The estimated due date based on the ultrasound measurement is January 25, 2020. MATERNAL: Right adnexa: The right ovary was not identified. Left adnexa: The left ovary was not identified. Intraperitoneal: No significant fluid is seen in the cul-de-sac. IMPRESSION: 1. Single live intrauterine with appropriate interval growth since the recent prior ultrasound. 2. The estimated gestational age is 7 weeks 2 days for an estimated due date of January 25, 2020. Electronically signed by: Yuly Lucas On 06/10/2019 07:24:09 AM
[2019-06-10 07:31] LABS: THYROID STIMULATING HORMONE 1.21 uIU/ML (0.358-3.740)
[2019-06-10 10:20] LABS: ESTRADIOL 1691.9 PG/ML; PROGESTERONE 37.04 NG/ML
== END ==
LOC: M RAD 06:11
PROVIDERS: ATTEND Obstetrics & Gynecology Reproductive Endocrinology
DX: Z32.01 Encounter for pregnancy test, result positive (principal)

== ENCOUNTER → 2019-07-05 | Outpatient (CLI) | payer BC ==
[2019-07-05 18:11] LABS: BASO % 0.2 % (0.0-1.0); EOS # 0.1 10^3/uL (0.0-0.5); EOS % 1.4 % (0.0-3.0); HEMOGLOBIN 11.9 g/dl (12.0-15.5); LYMPH % 22.6 % (24.0-44.0); MEAN CORPUSCULAR HEMOGLOBIN 27.5 pg (27.0-33.0); MEAN CORPUSCULAR HGB CONC 31.3 g/dl (32.0-36.5); MEAN CORPUSCULAR VOLUME 87.8 fl (80.0-96.0); MONO # 0.5 10^3/uL (0.0-0.8); NEUTROPHILS % 69.6 % (36.0-66.0); PLATELET COUNT, AUTOMATED 289 10^3/uL (150-450); RED BLOOD COUNT 4.33 10^6/uL (4.00-5.40); WHITE BLOOD COUNT 8.7 10^3/uL (4.0-10.0)
[2019-07-05 19:12] LABS: GLUCOSE CHALLENGE TEST 1 HOUR 89 MG/DL (LESS THAN 140)
[2019-07-06 00:06] LABS: CHLAMYDIA DNA AMPLIFICATION NEGATIVE (NEGATIVE); GC DNA AMPLIFICATION NEGATIVE (NEGATIVE)
[2019-07-06 11:51] LABS: RUBELLA IgG QUALITATIVE IMMUNE (IMMUNE)
[2019-07-06 12:20] LABS: HEPATITIS C VIRUS ABY INDEX < 0.0 INDEX (<0.8)
[2019-07-06 12:21] LABS: HIV 1&2 SCREEN CENTAUR NEGATIVE (NEGATIVE)
== END ==
LOC: M PLALAB 15:00
PROVIDERS: ATTEND Obstetrics & Gynecology
DX: O09.811 Supervision of pregnancy resulting from assisted reproductive technology, first trimester (principal)

== ENCOUNTER → 2019-08-31 | Outpatient (REF) | payer OTHER | LOC: M SFHCWAGY 16:54 | PROVIDERS: ATTEND Advanced Practice Midwife | DX: O99.212 Obesity complicating pregnancy, second trimester (principal) ==

== ENCOUNTER → 2019-09-13 | Outpatient (CLI) | payer BC ==
--- NOTE | 2019-09-14 07:23 | REP ---
Clinical: Anatomical evaluation. Comparison: None . Findings: Examination demonstrates a single live intrauterine in cephalic presentation. motion is identified by technologist. Placenta is noted anterior and grade by without evidence for placenta previa or abruption. Amniotic fluid volume is normal. Cervix measures 4.4 cm in length and appears closed. No evidence for nuchal cord. Gestational age by first US 20 weeks 5 days with VICKI 01/26/2020 . Gestational age by current measurements 21 weeks 6 days with VICKI 01/18/2020 . FHR equals 153 beats per minute. BPD 4.9 cm 21 weeks 0 days HC 19.5 cm 21 weeks 5 days AC 17.3 cm 22 weeks 2 days FL 4.0 cm 22 weeks 6 days HL 3.5 cm 22 weeks 0 days HC/AC ratio 1.13 Estimated weight 499 grams ( 89th percentile based on age by current measurements; greater than 97th percentile based on age by first ultrasound ). Anatomical assessment demonstrates normal structures including cranium, choroid plexus, cavum, cerebellum/posterior fossa, facial features, lungs, four-chamber heart/ventricular outflow tracts, diaphragm, stomach, cord insertion/three-vessel cord, kidneys/bladder, spine, and extremities. Impression: 1. Anatomical assessment is complete and normal. 2. Estimated weight in question.
== END ==
LOC: M WHC 14:30
PROVIDERS: ATTEND Advanced Practice Midwife
DX: O99.212 Obesity complicating pregnancy, second trimester (principal)

== ENCOUNTER → 2019-10-13 | Outpatient (REF) | payer OTHER ==
[2019-10-13 13:04] LABS: HEMATOCRIT 31.6 % (36.0-47.0); HEMOGLOBIN 10.2 g/dl (12.0-15.5); MEAN CORPUSCULAR HEMOGLOBIN 28.1 pg (27.0-33.0); MEAN CORPUSCULAR HGB CONC 32.3 g/dl (32.0-36.5); MEAN CORPUSCULAR VOLUME 87.1 fl (80.0-96.0); PLATELET COUNT, AUTOMATED 255 10^3/uL (150-450); RED BLOOD COUNT 3.63 10^6/uL (4.00-5.40); WHITE BLOOD COUNT 8.4 10^3/uL (4.0-10.0)
== END ==
LOC: M PLALAB 10:48 → M SFHCADAM 10:48
PROVIDERS: ATTEND Nurse Practitioner Women's Health
DX: Z34.82 Encounter for supervision of other normal pregnancy, second trimester (principal); Z3A.24 24 weeks gestation of pregnancy

== ENCOUNTER → 2019-12-19 | Outpatient (CLI) | payer BC ==
[~2019-12-19] MED LIST changes: +D31000TA2 PO; +PERCOCET PO; +SERT50TA29 PO
--- NOTE | 2020-02-10 13:04 | REP ---
THIRD TRIMESTER OBSTETRIC ULTRASOUND FOR AMNIOTIC FLUID INDEX ASSESSMENT AND GROWTH Delay in reporting results from malfunction of the hospital computer system as the result of a malware attack. FINDINGS: There is a single intrauterine gestation in a cephalic presentation. The placenta is anterior with grade 2 maturity. There is no previa or abruptio. Composite gestational age by [facility] ultrasound is 35 weeks 5 days. Estimated date of confinement (EDC) is 01/19/2020. heart rate is 132 beats per minute. Estimated weight by todays measurements is 2746 grams. This is the 53rd percentile. Subjectively the amniotic fluid volume is normal. Amniotic fluid index is 17.4. No additional evaluation is requested or performed at this time. [facility]
== END ==
LOC: M WHC 10:31
PROVIDERS: ATTEND Advanced Practice Midwife
DX: O26.843 Uterine size-date discrepancy, third trimester (principal); Z3A.35 35 weeks gestation of pregnancy

== ENCOUNTER → 2020-01-03 | Outpatient (REF) | payer OTHER | LOC: M SFHCWAGY 15:40 | PROVIDERS: ATTEND Advanced Practice Midwife | DX: Z36.85 Encounter for antenatal screening for Streptococcus B (principal) ==

== ENCOUNTER 2020-01-18 09:24 | Inpatient (IN) | payer BC, OTHER ==
[2020-01-18] VITALS (25 sets, daily range): BP systolic 86–123; BP diastolic 48–62
[~2020-01-18] VITALS: Ht 170.2 cm; Wt 131.2 kg
[~2020-01-18 09:24] MED LIST changes: -D31000TA2 PO; -PERCOCET PO; -SERT50TA29 PO
[2020-01-18] MEDS ORDERED: LR 1,000 ML IV SCH (11:27)
[2020-01-18] MEDS ORDERED: OXYTOCIN DRIP 30 UNITS in IV 1 EA IV SCH (11:30)
[2020-01-18 14:12] LABS: HEMATOCRIT 37.3 % (36.0-47.0); HEMOGLOBIN 12.1 g/dl (12.0-15.5); MEAN CORPUSCULAR HEMOGLOBIN 28.3 pg (27.0-33.0); MEAN CORPUSCULAR HGB CONC 32.4 g/dl (32.0-36.5); MEAN CORPUSCULAR VOLUME 87.1 fl (80.0-96.0); PLATELET COUNT, AUTOMATED 296 10^3/uL (150-450); RED BLOOD COUNT 4.28 10^6/uL (4.00-5.40); WHITE BLOOD COUNT 12.4 10^3/uL (4.0-10.0)
[2020-01-18] MEDS ORDERED: PENICILLIN G POTASSIUM IV 5 MU in D5W MINI-BAG PLUS 100 ML IV STA (15:32)
[2020-01-18] MEDS ORDERED: FENTANYL 2MCG/ML ROPIVACAINE 0.2% IN 0.9% NACL 100ML IVBAG As Ordered ONE (16:50)
[2020-01-18] MEDS ORDERED: ePHEDrine SULFATE 25 MG/5 ML(5MG/ML) SYRINGE As Ordered ONE (19:33)
[2020-01-18] MEDS: ePHEDrine SULFATE 25 MG/5 ML(5MG/ML) SYRINGE IV PRN ×5 (19:36→21:26)
[2020-01-18] MEDS ORDERED: PENICILLIN G POTASSIUM IV 2.5 MU in IV 1 EA IV SCH (19:45)
[2020-01-18] MEDS ORDERED: EPIDURAL/PCA KEYS XX PRN (20:00)
[2020-01-18] MEDS ORDERED: FENTANYL/ROPIVACAINE/NACL BAG 100 ML EPIDURAL SCH (20:00)
[2020-01-18] MEDS ORDERED: LACTATED RINGER'S 1000 ML IV PRN (20:00)
[2020-01-18] MEDS ORDERED: ONDANSETRON 4MG/2ML VIAL IV PRN (20:00)
[2020-01-18] MEDS ORDERED: EPIDURAL COMMENT XX SCH (20:00)
[2020-01-18] MEDS ORDERED: NALOXONE INJ 0.4MG/1ML VIAL (J2310 PER 1MG) IV PRN (20:00)
[2020-01-18] MEDS ORDERED: REFRIGERATOR IV KEYS XX PRN (20:00)
[2020-01-18] MEDS ORDERED: diphenhydrAMINE 50MG/ML VIAL (J1200) IV PRN (20:00)
[2020-01-19] VITALS (45 sets, daily range): BP systolic 86–164; BP diastolic 40–95
[2020-01-19] MEDS ORDERED: LACTATED RINGER'S 1000 ML IV STA (03:08)
[2020-01-19] MEDS ORDERED: BICITRA 30ML SOLN UDC As Ordered ONE (03:09)
[2020-01-19] MEDS ORDERED: ceFAZolin 2 GM/D5W 50 ML IV BAG (J0690 PER 500MG) As Ordered ONE (03:09)
[2020-01-19] MEDS ORDERED: AZITHROMYCIN INJ 500MG VIAL (J0456 PER 500MG) As Ordered ONE (03:10)
[2020-01-19] MEDS ORDERED: AZITHROMYCIN INJ 500 MG, VIAL MATE ADAPTER 1 EACH in D5W 250 ML IV ONE (03:15)
[2020-01-19] MEDS ORDERED: BICITRA 30ML SOLN UDC PO ONE (03:15)
[2020-01-19] MEDS ORDERED: ceFAZolin SOD 2 GM in IV 1 EA IV ONE (03:15)
[2020-01-19] MEDS ORDERED: OXYTOCIN DRIP 30 UNITS in IV 1 EA IV SCH ×3 (03:42→07:30)
[2020-01-19] MEDS ORDERED: LR 1,000 ML IV SCH ×2 (03:42→05:30)
[2020-01-19] MEDS ORDERED: OXYTOCIN INJ 10 UNITS/ML VIAL (J2590) As Ordered ONE (03:44)
[2020-01-19] MEDS ORDERED: LIDOCAINE PRES-FREE 2% 10ML AMP As Ordered ONE ×2 (03:44→04:18)
[2020-01-19] MEDS ORDERED: ONDANSETRON 4MG/2ML VIAL As Ordered ONE (03:44)
[2020-01-19] MEDS ORDERED: MORPHINE PRES-FREE INJ 10 MG/10 ML VIAL (J2274) As Ordered ONE (03:44)
[2020-01-19] MEDS ORDERED: ANUSOL HC CREAM 30GM TOP PRN (03:45)
[2020-01-19] MEDS ORDERED: MOM 30ML SUSPENSION UDC PO PRN (03:45)
[2020-01-19] MEDS ORDERED: MEASLES,MUMPS,RUBELLA VACCINE INJ (MMR-II) (90707) SC SCH (03:45)
[2020-01-19] MEDS ORDERED: RHOGAM 300 MCG (1500 IU) INJ (J2790) IM SCH (03:45)
[2020-01-19] MEDS ORDERED: ONDANSETRON 4MG/2ML VIAL IV PRN ×3 (03:45→05:30)
[2020-01-19] MEDS ORDERED: PERCOCET 5MG/325MG TAB PO PRN ×2 (03:45→05:30)
[2020-01-19] MEDS ORDERED: KETOROLAC 30 MG/ML 1ML VIAL IV SCH (04:00)
[2020-01-19] MEDS ORDERED: NALBUPHINE HCL 10 MG/ML AMP (J2300) IV PRN (04:00)
[2020-01-19] MEDS ORDERED: METOCLOPRAMIDE INJ 10MG/2ML VIAL (J2765 PER 1) IV PRN ×2 (04:00→05:30)
[2020-01-19] MEDS ORDERED: NALOXONE INJ 0.4MG/1ML VIAL (J2310 PER 1MG) IV PRN ×2 (04:00)
[2020-01-19] MEDS ORDERED: diphenhydrAMINE 50MG/ML VIAL (J1200) IV PRN (04:00)
[2020-01-19] MEDS ORDERED: fentaNYL 100 MCG/2 ML INJECTION (J3010) As Ordered ONE (04:08)
[2020-01-19] MEDS ORDERED: propofoL 200 MG/20 ML VIAL As Ordered ONE (04:13)
[2020-01-19 04:34] LABS: CORD GAS ABE A -5.7; CORD GAS HCO3 A 21.7 MEQ/L; CORD GAS O2 SAT A 54.2 %; CORD GAS PCO2 A 49.4 mmHg; CORD GAS PH A 7.26 UNITS; CORD GAS PO2 A 25.6 mmHg; CORD GAS SBC A 18.9 MEQ/L; CORD GAS TCO2 A 23.2 MEQ/L
[2020-01-19 04:37] LABS: CORD GAS PH V 7.331 UNITS; CORD GAS PO2 V 30.8 mmHg; CORD GAS TCO2 V 20.2 MEQ/L
[2020-01-19 04:38] LABS: CORD GAS ABE V -6.1; CORD GAS HCO3 V 19.1 MEQ/L
--- NOTE | 2020-01-19 05:06 | ROOPDOC ---
[facility] Report Of Operation Report of Operation DATE OF PROCEDURE: 01/19/20 SURGEON: Audra Dixon M.D. STRUCTURAL ARCHITECT: Susannah Dominguez CNM PREOPERATIVE DIAGNOSIS: 1. Arrest of dilation 2. Intrauterine at 39 weeks POSTOPERATIVE DIAGNOSIS: 1. Arrest of dilation 2. Intrauterine at 39 weeks ANESTHESIA: Epidural OPERATION PERFORMED: section ESTIMATED BLOOD LOSS: 900 mL URINE OUTPUT: 200 mL INTRAVENOUS FLUIDS: 1300 mL of lactated Ringer's solution PREOPERATIVE ANTIBIOTICS:. 2 g of Ancef OPERATIVE FINDINGS: Liveborn female infant, Apgars 8 and 9. Weight was 3730 g or 8 pounds 4oz SPECIMENS: Cord gasses DESCRIPTION OF PROCEDURE: After informed consent was obtained and written consent was reviewed. The patient was brought to the operating room where spinal anesthesia was placed. She was then placed in the supine position with a left lateral tilt. Moreno catheter was placed previously and was to gravity. Patient was then prepped and draped in the normal sterile fashion. A timeout operating room was performed identifying the patient, procedure be performed as well as drug allergies. Anesthesia was tested and deemed to be adequate. Pfannenstiel skin incision was made and this was carried down to the underlying rectus fascia. The fascia was then scored and this incision was extended bilaterally. The fascia was then dissected off the underlying rectus muscle superiorly and inferiorly. The rectus muscles were then in the midline. The peritoneum is then entered. Vesicouterine peritoneum was then tented and excised and a bladder flap was created. Mobius retractor was then placed. Next, a curvilinear incision was then made in the lower uterine segment. Amniotomy was performed, productive, clear fluid. The head was brought to the level of the incision atraumatically and delivered along the shoulders and corpus. The cord was clamped x-2. The was brought over to the warmer with a good cry. Placenta was drained and delivered grossly intact. The uterus was cleared of all clots and debris and the uterine incision was then closed in 2 layers using 0 Vicryl, first in a running locking fashion followed by second layer for imbrication. The abdomen suctioned. Surgical sites reinspected and noted be he mostatic. The retractor was then removed. The anterior peritoneum was then reapproximated with 3-0 Vicryl. The fascia was then closed using 0 Vicryl in a running nonlocking fashion. The subcutaneous tissues was then irrigated and suctioned. Subcutaneous tissue was reapproximated using 3-0 Vicryl. Several subdermal stitch is placed using 3-0 Vicryl and the skin was closed with 4-0 Monocryl and subcuticular fashion. This incision was then cleaned and dried and was dressed. The patient was then taken to recovery in stable condition. All counts were correct. My neurosurgical nurse practitioner Susannah Dominguez played in an essential role during the ope ration. She assisted with tissue identification retraction, delivery of the , as well as wound closure. AUDRA DIXON MD. Jan 19, 2020 05:06
[2020-01-19] MEDS ORDERED: fentaNYL 100 MCG/2 ML INJECTION (J3010) IV PRN (05:30)
[2020-01-19] MEDS ORDERED: MEPERIDINE INJ 25 MG/ML VIAL (J2175) IV PRN (05:30)
[2020-01-19] MEDS ORDERED: PERCOCET 5MG/325MG TAB As Ordered ONE (05:35)
[2020-01-19] MEDS ORDERED: KETOROLAC 30 MG/ML 1ML VIAL As Ordered ONE (05:35)
[2020-01-19] MEDS: KETOROLAC 30 MG/ML 1ML VIAL IV SCH ×3 (05:39→17:56)
[2020-01-19] MEDS ORDERED: OXYTOCIN 30 UNITS IN 0.9% NaCl 500ML IV BAG (J2590) As Ordered ONE ×2 (06:07→07:15)
[2020-01-19] MEDS ORDERED: METHYLERGONOVINE MALEATE 0.2 MG/ML VIAL (J2210) As Ordered ONE (06:55)
[2020-01-19] MEDS ORDERED: METHYLERGONOVINE MALEATE 0.2 MG/ML VIAL (J2210) IM STA (06:55)
[2020-01-19] MEDS ORDERED: METHYLERGONOVINE MALEATE 0.2 MG TAB PO PRN (07:00)
[2020-01-19] MEDS ORDERED: METHYLERGONOVINE MALEATE 0.2 MG/ML VIAL (J2210) IM ONE (07:00)
[2020-01-19] MEDS: PRENATAL VITAMINS CHEWABLE TABLET PO SCH (09:00)
[2020-01-19] MEDS: METHYLERGONOVINE MALEATE 0.2 MG TAB PO SCH ×4 (10:56→22:53)
[2020-01-19] MEDS: DOCUSATE SODIUM 100 MG CAP PO SCH ×2 (10:56→21:06)
[2020-01-19] MEDS: SLF 3 ML SYR IV SCH (14:00)
[2020-01-19] MEDS ORDERED: SLF 3 ML SYR IV PRN (14:45)
[2020-01-20 02:00] VITALS: BP 132/74
[2020-01-20] MEDS: IBUPROFEN 800 MG TAB PO SCH ×3 (02:28→17:20)
[2020-01-20] MEDS: METHYLERGONOVINE MALEATE 0.2 MG TAB PO SCH ×2 (02:28→07:40)
[2020-01-20] MEDS: PERCOCET 5MG/325MG TAB PO PRN ×2 (03:23→21:53)
[2020-01-20 06:00] VITALS: BP 125/57
[2020-01-20] MEDS: SLF 3 ML SYR IV SCH ×3 (06:00→19:47)
[2020-01-20] MEDS: DOCUSATE SODIUM 100 MG CAP PO SCH ×2 (07:40→19:46)
[2020-01-20] MEDS: PRENATAL VITAMINS CHEWABLE TABLET PO SCH (07:40)
[2020-01-20 09:37] LABS: HEMATOCRIT 29.7 % (36.0-47.0); MEAN CORPUSCULAR HEMOGLOBIN 28.7 pg (27.0-33.0); MEAN CORPUSCULAR HGB CONC 31.6 g/dl (32.0-36.5); MEAN CORPUSCULAR VOLUME 90.5 fl (80.0-96.0); PLATELET COUNT, AUTOMATED 187 10^3/uL (150-450); RED BLOOD COUNT 3.28 10^6/uL (4.00-5.40); WHITE BLOOD COUNT 10.9 10^3/uL (4.0-10.0)
[2020-01-20 09:49] LABS: HEMOGLOBIN 9.4 g/dl (12.0-15.5)
--- NOTE | 2020-01-20 09:51 | IPNPDOC ---
Text Note Date of Service The patient was seen on 01/20/20. NOTE PO #1 Feels well. Adequate pain management. . OOB independently. Voiding VSS, afebrile, normotensive Breasts soft, nipples intact Fundus firm, NT Dressing intact, scant old drainage. Lochia rubra light without odor PO #1 Routine care. Consider discharge in am VS,Fishbone, I+O VS, Fishbone, I+O Vital Signs Date Time Temp Pulse Resp B/P (MAP) Pulse Ox O2 Delivery O2 Flow Rate FiO2 01/20/20 06:04 18 Room Air 01/20/20 06:00 97.8 79 125/57 (38) 97 I&O- Last 24 Hours up to 6 AM 01/20/20 06:00 Intake Total 3235 ml Output Total 1475 ml Balance 1760 ml Karin Hamilton CNM Jan 20, 2020 09:51
[2020-01-20 10:00] VITALS: BP 126/66
[2020-01-20 14:00] VITALS: BP 134/68
[2020-01-20 18:00] VITALS: BP 138/68
[2020-01-20 22:48] VITALS: BP 118/68
[2020-01-21] MEDS: IBUPROFEN 800 MG TAB PO SCH ×2 (02:01→10:02)
[2020-01-21] MEDS: SLF 3 ML SYR IV SCH (04:23)
[2020-01-21 06:06] VITALS: BP 111/59
[2020-01-21] MEDS: PRENATAL VITAMINS CHEWABLE TABLET PO SCH (08:03)
[2020-01-21] MEDS: DOCUSATE SODIUM 100 MG CAP PO SCH (08:03)
--- NOTE | 2020-02-07 11:46 | DSES ---
DATE OF ADMISSION: 01/18/2020 DATE OF DISCHARGE: 01/21/2020 BRIEF HISTORY: A 34-year-old female at 39+ weeks gestation who presented in labor. She was admitted. HOSPITAL COURSE: The patient was admitted on 01/18/2020. She made slow but steady progress in labor. She was eventually diagnosed with arrest of dilation. On 01/19/2020, she underwent primary section for an 8 pound 4 ounce female . There were no complications. Her postoperative course was unremarkable. Her hemoglobin was 9.4 gram/dL on postoperative day #1. She had accurate return of bowel and bladder function. She is deemed stable for discharge on postoperative day #2. ADMISSION DIAGNOSIS: term, labor. DISCHARGE DIAGNOSIS: Delivered. PROCEDURE: section. DISPOSITION: Patient is to follow-up with Dr. Pritchard in two weeks. Her chart is reviewed. DEV
--- NOTE | 2020-02-27 09:54 | HPE ---
DATE OF ADMISSION: 01/18/2020 Apoorva is a 34-year-old 3, para 2-0-0-2 at 39-6/7 weeks gestation with estimated date of confinement (EDC) of 01/19/2020. She presents to labor and delivery with complaint of spontaneous rupture of membranes at approximately 0530. She does note that the fluid is green in color and odorless. She does report some mild cramping before the rupture of membranes and continued cramping at this time that is mild. She denies vaginal bleeding. The fetus has been active. Her care was initiated at [facility]. Her course has been uncomplicated. OBSTETRIC HISTORY: January 2013, a 39-week vaginal delivery. March 2015, 40 weeks, vaginal delivery. This was conceived with in-vitro fertilization (IVF) due to prior bilateral tubal ligation. OBSTETRIC LABORATORY DATA: A positive, antibody screen negative, syphilis negative, HIV negative, hepatitis B surface antigen negative, hepatitis C antibody negative, rubella immune. Urine culture no growth. Gonorrhea and chlamydia negative. Gestational diabetic screening normal at 82, and her GBS is negative. PAST MEDICAL HISTORY: Anemia. SURGERIES: Tubal ligation. FAMILY HISTORY: Aneurysm, stroke, seizures, gestational diabetes, esophageal cancer, high blood pressure, and asthma. SOCIAL HISTORY: The patient is . She is a nonsmoker. Denies alcohol and drug use. No history of sexual transmitted infections. Denies history of abuse, physical, sexual, and emotional. ALLERGIES: No known drug allergies. CURRENT MEDICATIONS: vitamin, vitamin D, sertraline 50, and naltrexone 4.5 mg. OBJECTIVE: Complete set of vital signs have not get been taken. Blood pressure is 118/76. She is alert and oriented times three. She is not in any apparent distress. heart rate is 135 with moderate variability. Positive accelerations. No decelerations. Contractions are mild, approximately every 4 minutes. Sterile vaginal exam: Grossly ruptured. Meconium fluid. Dilated 2 cm, 50% effaced, -3 station. Her abdomen is gravid with cephalic presentation. Estimated weight 8 pounds. ASSESSMENT: Intrauterine at 39-6/7 weeks. heart rate category 1. Spontaneous rupture of membranes. Meconium fluid. Late in labor. PLAN: Admit patient to labor and delivery. Out of bed ad steve. Clear liquid diet. Routine lab work. Start IV Pitocin for labor induction. Patient does desire an epidural when she is uncomfortable with her labor. Risks and benefits reviewed. All questions answered. The patient has been verbally consented for emergency surgery and blood products if necessary. I do anticipate an active labor and a vaginal delivery. MTDD
== END 2020-01-21 12:45 | disposition home or self-care (01) | DRG 540 ==
LOC: M LDO 09:24 → M LDI 11:28 → M OBS 01-19 07:48
PROVIDERS: ADMIT Advanced Practice Midwife; ATTEND Advanced Practice Midwife
PROC: 3E0234Z Introduction of Serum, Toxoid and Vaccine into Muscle, Percutaneous Approach (ICD-10-PCS; 2020-01-18)
PROC: 10D00Z1 Extraction of Products of Conception, Low, Open Approach (ICD-10-PCS; principal; 2020-01-19 03:20)
DX: O62.0 Primary inadequate contractions (principal); I95.9 Hypotension, unspecified; Z37.0 Single live birth; Z3A.39 39 weeks gestation of pregnancy; O76 Abnormality in fetal heart rate and rhythm complicating labor and delivery

== ENCOUNTER → 2020-02-01 | Outpatient (CLI) | payer BC, OTHER ==
[~2020-02-01] MED LIST changes: +D31000TA2 PO; +ISOVUE-370 76% 100ML VIAL As Ordered ONE; +PERCOCET PO; +SERT50TA29 PO
--- NOTE | 2020-02-01 13:40 | REPVR ---
PROCEDURE INFORMATION: Exam: CT Abdomen And Pelvis Without And With Contrast Exam date and time: 02/01/2020 1:02 PM Age: 34 years old Clinical indication: Abdominal pain; Localized; Lower; Additional info: Post pain TECHNIQUE: Imaging protocol: Computed tomography of the abdomen and pelvis without and with intravenous contrast. Radiation optimization: All CT scans at this facility use at least one of these dose optimization techniques: automated exposure control; mA and/or kV adjustment per patient size (includes targeted exams where dose is matched to clinical indication); or iterative reconstruction. Contrast material: ISOVUE 370; Contrast volume: 100 ml; Contrast route: INTRAVENOUS (IV); COMPARISON: OBS LIMITED US 12/19/2019 3:40 PM FINDINGS: Liver: Normal. No mass. Gallbladder and bile ducts: Normal. No calcified stones. No ductal dilation. Pancreas: Normal. No ductal dilation. Spleen: The spleen is upper normal in size. Adrenals: Normal. No mass. Kidneys and ureters: Normal. No hydronephrosis. Stomach and bowel: Unremarkable. No obstruction. No mucosal thickening. Appendix: No evidence of appendicitis. Intraperitoneal space: Trace ascites. Vasculature: Unremarkable. No abdominal aortic aneurysm. Lymph nodes: Unremarkable. No enlarged lymph nodes. Bladder: Bladder is nondistended, somewhat limiting evaluation. There appears to be mild diffuse bladder wall thickening. Reproductive: Mildly enlarged post gravid uterus. No intrauterine gas. Left-sided tubal ligation clip. Additional ligation clip in the pelvic cul-de-sac. Bones/joints: Degenerative change of the spine. Mild bilateral hip joint DJD. Soft tissues: Edema within the lower rectus abdominus muscles. Loculated low-density fluid collection within the ventral pelvic subcutaneous tissues. This measures 17.6 x 4.6 x 8.3 cm. Collection measures the density of simple fluid. Collection contains no gas. Mild surrounding subcutaneous edema. IMPRESSION: 1. Low-density fluid collection within the ventral pelvic subcutaneous tissues. This is favored to represent a postoperative seroma. 2. Apparent mild diffuse bladder wall thickening. Correlate with urinalysis Electronically signed by: Ya Aguila On 02/01/2020 13:40:03 PM
== END ==
LOC: M RAD 12:18
PROVIDERS: ATTEND Specialist
DX: O90.2 Hematoma of obstetric wound (principal)

== ENCOUNTER → 2020-02-02 | Outpatient (CLI) | payer BC, OTHER ==
[~2020-02-02] MED LIST changes: -ISOVUE-370 76% 100ML VIAL As Ordered ONE; +LIDOCAINE 1% MDV 20ML VIAL As Ordered ONE
[2020-02-02 08:37] VITALS: BP 122/57
--- NOTE | 2020-02-23 13:18 | REP ---
ULTRASOUND GUIDED ABDOMINAL SEROMA DRAIN The procedure was performed under the direct supervision of Dr. Saldivar. The patient has a history of a low density fluid collection within the ventral pelvic subcutaneous tissues seen on a previous CT scan dated 02/01/2020. The risks and benefits of the procedure were explained to the patient and informed consent was obtained. The seroma was localized using ultrasound guidance. The skin was prepped and draped in a sterile fashion. 1% Lidocaine was used as a local anesthetic. Using ultrasound guidance, an 8-[place] Sk[place] APDL catheter was inserted using trocar technique. 200 mL of low viscosity red colored fluid was withdrawn with a sample sent to the lab for analysis. The catheter was then removed. The patient tolerated the procedure well and there were no immediate complications. After the appropriate amount of monitored convalescence, the patient was discharged from the department. DEV
== END ==
LOC: M IRPRO 07:34
PROVIDERS: ATTEND Specialist
DX: O90.0 Disruption of cesarean delivery wound (principal)

== ENCOUNTER → 2020-02-06 | Outpatient (CLI) | payer BC, OTHER ==
[~2020-02-06] MED LIST changes: -LIDOCAINE 1% MDV 20ML VIAL As Ordered ONE
--- NOTE | 2020-02-06 14:59 | REPVR ---
PROCEDURE INFORMATION: Exam: CT Abdomen And Pelvis Without Contrast Exam date and time: 02/06/2020 2:40 PM Age: 34 years old Clinical indication: Abdominal pain; Generalized; Prior surgery; Surgery date: <1 month; Surgery type: ; Additional info: Postproc seroma of skin, subcu following other procedure TECHNIQUE: Imaging protocol: Computed tomography of the abdomen and pelvis without contrast. Radiation optimization: All CT scans at this facility use at least one of these dose optimization techniques: automated exposure control; mA and/or kV adjustment per patient size (includes targeted exams where dose is matched to clinical indication); or iterative reconstruction. COMPARISON: CT ABD PELVIS W/O FOL BY WIT 02/01/2020 1:09 PM FINDINGS: Detailed evaluation of the abdominal and pelvic viscera is somewhat limited in the absence of intravenous contrast. Pleural space: No acute airspace or pleural disease. Liver: Fatty infiltration of the liver. Gallbladder and bile ducts: Contracted gallbladder. No biliary ductal dilatation. Pancreas: No pancreatic mass or ductal dilatation. Spleen: Enlarged spleen measuring 15.5 cm in length. Adrenals: Unremarkable adrenals. Kidneys and ureters: Normal renal morphology. No hydronephrosis. Stomach and bowel: Mild bowel dilatation and prominent stool. Diverticula, without pericolonic inflammation. Appendix: No acute appendicitis. Intraperitoneal space: No significant free fluid. Vasculature: Normal caliber of the abdominal aorta. Lymph nodes: Subcentimeter lymph nodes. Bladder: Normal bladder morphology. Reproductive: Post gravid uterus. Left tubal ligation. Additional surgical clip in the posterior pelvic midline. Bones/joints: Degenerative change and disc bulging. L4 spondylolysis and grade 1 anterolisthesis of L4 on L5. Soft tissues: Subcutaneous edema and skin thickening in the anterior abdominal wall and pelvis. Postoperative 16.1 x 3.9 x 6.9 cm subcutaneous fluid collection again demonstrated in the anterior pelvis, containing a few foci of internal air. On the prior study, this measured 17.9 by 4.2 by 7.1 cm. IMPRESSION: 1. Subcutaneous edema and skin thickening in the anterior abdominal wall and pelvis. 2. Postoperative 16.1 x 3.9 x 6.9 cm subcutaneous fluid collection again demonstrated in the anterior pelvis, containing a few foci of internal air. On the prior study, this measured 17.9 by 4.2 by 7.1 cm. 3. Additional findings as described above. Electronically signed by: Aleksandr Fry On 02/06/2020 14:59:52 PM
== END ==
LOC: M RAD 14:13
PROVIDERS: ATTEND Specialist
DX: L76.34 Postprocedural seroma of skin and subcutaneous tissue following other procedure (principal)

== ENCOUNTER 2020-02-07 11:50 | Day surgery (SDC) | payer BC, OTHER ==
[~2020-02-07] VITALS: Ht 170.2 cm; Wt 118.8 kg
[~2020-02-07 11:50] MED LIST changes: +ACETAMINOPHEN 1000MG 100ML IV BTL (OFIRMEV) (J0131 PER 10MG) As Ordered ONE; -D31000TA2 PO; +KETOROLAC 60MG 2ML VIAL As Ordered ONE; +LIDOCAINE 2% 100MG/5ML SDV (FOR ANES.) As Ordered ONE; +MIDAZOLAM INJ 2MG/2ML VIAL (J2250 PER 1MG) As Ordered ONE; +ONDANSETRON 4MG/2ML VIAL As Ordered ONE; -PERCOCET PO; +ROCURONIUM BROMIDE 50 MG/5 ML VIAL As Ordered ONE; -SERT50TA29 PO; +SUGAMMADEX SODIUM 500 MG/5 ML VIAL (BRIDION) As Ordered ONE; +dexameTHASONE 4 MG/ML 1ML VIAL (J1100 PER 1MG) As Ordered ONE; +fentaNYL 250 MCG/5 ML INJECTION (J3010) As Ordered ONE; +propofoL 200 MG/20 ML VIAL As Ordered ONE
[2020-02-07] MEDS ORDERED: D31000TA2 PO (12:06)
[2020-02-07] MEDS ORDERED: SERT50TA29 PO (12:06)
[2020-02-07] MEDS ORDERED: ceFAZolin 2 GM/D5W 50 ML IV BAG (J0690 PER 500MG) As Ordered ONE (12:10)
[2020-02-07] MEDS ORDERED: ceFAZolin SOD 2 GM in IV 1 EA IV ONE (12:30)
[2020-02-07] MEDS ORDERED: BUPIVACAINE/EPIN 0.25% 30 ML VIAL As Ordered ONE (12:40)
[2020-02-07 12:51] LABS: HEMATOCRIT 31.3 % (36.0-47.0); HEMOGLOBIN 9.7 g/dl (12.0-15.5); MEAN CORPUSCULAR HEMOGLOBIN 26.9 pg (27.0-33.0); MEAN CORPUSCULAR VOLUME 86.9 fl (80.0-96.0); PLATELET COUNT, AUTOMATED 516 10^3/uL (150-450); WHITE BLOOD COUNT 9.6 10^3/uL (4.0-10.0)
[2020-02-07] MEDS ORDERED: ePHEDrine SULFATE 25 MG/5 ML(5MG/ML) SYRINGE As Ordered ONE (13:03)
[2020-02-07] MEDS ORDERED: PERCOCET 5MG/325MG TAB PO PRN ×2 (14:00)
[2020-02-07] MEDS ORDERED: METOCLOPRAMIDE INJ 10MG/2ML VIAL (J2765 PER 1) IV PRN (14:00)
[2020-02-07] MEDS ORDERED: fentaNYL 100 MCG/2 ML INJECTION (J3010) IV PRN (14:00)
[2020-02-07] MEDS ORDERED: ONDANSETRON 4MG/2ML VIAL IV PRN (14:00)
[2020-02-07] MEDS ORDERED: LR 1,000 ML IV SCH (14:00)
[2020-02-07 14:55] VITALS: BP 120/62
[2020-02-07] MEDS ORDERED: PERCOCET PO (15:39)
[2020-02-07] MEDS ORDERED: KETOROLAC 30 MG/ML 1ML VIAL IV SCH (19:00)
--- NOTE | 2020-02-20 15:12 | RO ---
DATE OF OPERATION: 02/07/2020 PREOPERATIVE DIAGNOSES: Postoperative wound seroma. POSTOPERATIVE DIAGNOSES: Postoperative wound abscess. SURGEON: Wale Cervantes MD PCAT INSTRUCTOR: Audra Dixon MD ANESTHESIA: General endotracheal. ESTIMATED BLOOD LOSS: 50 mL. FINDINGS: Large wound abscess superficial to the abdominal wall fascia that went the entire length of the incision. The fascia was intact. This was at the level of the Pfannenstiel skin incision from her previous section. OPERATIVE SUMMARY: The patient was taken to the operating room where general endotracheal anesthesia was induced. She was prepped and draped in sterile fashion in the supine position. Moreno catheter was placed. The Pfannenstiel skin incision from the prior surgery was partially opened on the left side. The skin was noted to be red and indurated at that area. The incision was taken down a good 6-7 cm before a pocket of purulent drainage was encountered. This was opened and the pocket was contiguous along the entire length of the incision. A large amount of purulent drainage resulted from the incision. This was irrigated thoroughly. The necrotic tissue was excised. The fascia was probed and noted to be intact. The cavity was then packed with Kerlix gauze. A bandage was then applied. Sponge and instrument counts were correct. The patient went to the recovery room in stable condition. DEV
== END 2020-02-07 15:04 | disposition home or self-care (01) ==
LOC: M SDC 11:50
PROVIDERS: ATTEND Specialist
DX: T81.49XA Infection following a procedure, other surgical site, initial encounter (principal); F41.9 Anxiety disorder, unspecified; Z79.899 Other long term (current) drug therapy
CPT/HCPCS: 10060; 36415; 85027; 86850; 87486; 87581; 87633; 87798; J0131; J0690; J1100; J1885; J2250; J2405; J3010

== ENCOUNTER → 2020-06-05 | Outpatient (REF) | payer OTHER ==
[~2020-06-05] MED LIST changes: -ACETAMINOPHEN 1000MG 100ML IV BTL (OFIRMEV) (J0131 PER 10MG) As Ordered ONE; +D31000TA2 PO; -KETOROLAC 60MG 2ML VIAL As Ordered ONE; -LIDOCAINE 2% 100MG/5ML SDV (FOR ANES.) As Ordered ONE; -MIDAZOLAM INJ 2MG/2ML VIAL (J2250 PER 1MG) As Ordered ONE; -ONDANSETRON 4MG/2ML VIAL As Ordered ONE; +PERCOCET PO; -ROCURONIUM BROMIDE 50 MG/5 ML VIAL As Ordered ONE; +SERT50TA29 PO; -SUGAMMADEX SODIUM 500 MG/5 ML VIAL (BRIDION) As Ordered ONE; -dexameTHASONE 4 MG/ML 1ML VIAL (J1100 PER 1MG) As Ordered ONE; -fentaNYL 250 MCG/5 ML INJECTION (J3010) As Ordered ONE; -propofoL 200 MG/20 ML VIAL As Ordered ONE
== END ==
LOC: M SFHCWAGY 13:38
PROVIDERS: ATTEND Specialist
DX: Z01.419 Encounter for gynecological examination (general) (routine) without abnormal findings (principal); Z12.4 Encounter for screening for malignant neoplasm of cervix

== ENCOUNTER → 2021-03-20 | Outpatient (REF) | payer OTHER ==
[2021-03-20 13:53] LABS: ALBUMIN 3.9 GM/DL (3.2-5.2); ALT/SGPT 39 U/L (12-78); BILIRUBIN,TOTAL 0.6 MG/DL (0.2-1.0); BLOOD UREA NITROGEN 15 MG/DL (7-18); CALCIUM LEVEL 9.7 MG/DL (8.5-10.1); CARBON DIOXIDE LEVEL 31 MEQ/L (21-32); CHLORIDE LEVEL 106 MEQ/L (98-107); CHOLESTEROL LEVEL 175 MG/DL (<200); CHOLESTEROL RISK RATIO 3.181 (<5); CREATININE FOR GFR 0.74 MG/DL (0.55-1.30); FREE T4 0.83 NG/DL (0.76-1.46); GLOMERULAR FILTRATION RATE > 60.0 (>60); GLUCOSE, FASTING 100 MG/DL (70-100); HDL CHOLESTEROL 55 MG/DL (>40); LDL CHOLESTEROL 102 MG/DL (<100); NON-HDL-C 120 MG/DL; POTASSIUM SERUM 4.7 MEQ/L (3.5-5.1); SODIUM LEVEL 138 MEQ/L (136-145); THYROID STIMULATING HORMONE 0.618 uIU/ML (0.358-3.740); TOTAL 25(OH) VITAMIN D 53.2 NG/ML (30.0-100.0); TOTAL PROTEIN 7.8 GM/DL (6.4-8.2); TRIGLYCERIDES LEVEL 89 MG/DL (<150)
== END ==
LOC: M LABDRWAD 12:14
PROVIDERS: ATTEND Nurse Practitioner Family
DX: Z00.00 Encounter for general adult medical examination without abnormal findings (principal); F41.9 Anxiety disorder, unspecified; E55.9 Vitamin D deficiency, unspecified

== ENCOUNTER → 2021-09-18 | Outpatient (REF) | payer BC ==
[~2021-09-18] MED LIST changes: -D31000TA2 PO; +VITA100093 PO
== END ==
LOC: M SFHCWAGY 17:25
PROVIDERS: ATTEND Specialist
DX: Z01.419 Encounter for gynecological examination (general) (routine) without abnormal findings (principal); Z12.4 Encounter for screening for malignant neoplasm of cervix

== ENCOUNTER → 2021-10-30 | Outpatient (CLI) | payer BC, OTHER | LOC: M RAD 16:15 | PROVIDERS: ATTEND Nurse Practitioner Family | DX: R51.9 Headache, unspecified (principal); Z84.89 Family history of other specified conditions ==

== ENCOUNTER → 2022-02-10 | Outpatient (CLI) | payer BC, OTHER ==
[~2022-02-10] MED LIST changes: +IRON65TA2 PO; +MELA3TAB49 PO; +MULTTAB61 PO; +PHEN-239; +ZOLO100T
== END ==
LOC: M LABSMTC 09:46
PROVIDERS: ATTEND Anesthesiology
DX: Z01.818 Encounter for other preprocedural examination (principal); Z11.52 Encounter for screening for COVID-19

== ENCOUNTER 2022-02-14 11:53 | Day surgery (SDC) | payer BC, OTHER ==
[~2022-02-14] VITALS: Ht 170.2 cm; Wt 122.5 kg
[2022-02-14 12:53] LABS: HEMATOCRIT 37.7 % (36.0-47.0); HEMOGLOBIN 11.9 g/dl (12.0-15.5); MEAN CORPUSCULAR HEMOGLOBIN 28.3 pg (27.0-33.0); MEAN CORPUSCULAR HGB CONC 31.6 g/dl (32.0-36.5); MEAN CORPUSCULAR VOLUME 89.5 fl (80.0-96.0); PLATELET COUNT, AUTOMATED 280 10^3/uL (150-450); RED BLOOD COUNT 4.21 10^6/uL (4.00-5.40); WHITE BLOOD COUNT 7.1 10^3/uL (4.0-10.0)
[2022-02-14] MEDS ORDERED: METOCLOPRAMIDE INJ 10MG/2ML VIAL (J2765 PER 1) As Ordered ONE (14:41)
[2022-02-14] MEDS ORDERED: fentaNYL 100 MCG/2 ML INJECTION As Ordered ONE (14:41)
[2022-02-14] MEDS ORDERED: LIDOCAINE 2% 100MG/5ML SDV (FOR ANES.) As Ordered ONE (14:41)
[2022-02-14] MEDS ORDERED: dexameTHASONE 4 MG/ML 1ML VIAL (J1100 PER 1MG) As Ordered ONE (14:41)
[2022-02-14] MEDS ORDERED: MIDAZOLAM INJ 2MG/2ML VIAL (J2250 PER 1MG) As Ordered ONE (14:41)
[2022-02-14] MEDS ORDERED: KETOROLAC 60MG 2ML VIAL As Ordered ONE (14:41)
[2022-02-14] MEDS ORDERED: ACETAMINOPHEN 1000MG 100ML IV BTL (OFIRMEV) (J0131 PER 10MG) As Ordered ONE (14:41)
[2022-02-14] MEDS ORDERED: ONDANSETRON 4MG 2ML VIAL As Ordered ONE (14:41)
[2022-02-14] MEDS ORDERED: propofoL 200 MG/20 ML VIAL As Ordered ONE (14:41)
[2022-02-14] MEDS ORDERED: fentaNYL 100 MCG/2 ML INJECTION IV PRN (15:10)
[2022-02-14] MEDS ORDERED: oxyCODONE 5MG TAB PO PRN (15:10)
[2022-02-14] MEDS ORDERED: LR 1,000 ML IV SCH ×2 (15:10→15:35)
[2022-02-14] MEDS ORDERED: ONDANSETRON 4MG 2ML VIAL IV PRN (15:10)
[2022-02-14] MEDS ORDERED: METOCLOPRAMIDE INJ 10MG/2ML VIAL (J2765 PER 1) IV PRN (15:10)
[2022-02-14] MEDS ORDERED: PERCOCET 5MG/325MG TAB PO PRN (15:35)
[2022-02-14 16:30] VITALS: BP 124/73
== END 2022-02-14 16:45 | disposition home or self-care (01) ==
LOC: M SDC 11:53
PROVIDERS: ATTEND Specialist
DX: N92.0 Excessive and frequent menstruation with regular cycle (principal)
CPT/HCPCS: 36415; 58563; 81025; 85027; J0131; J1100; J1885; J2250; J2405; J2765; J3010

== ENCOUNTER → 2023-05-28 | Outpatient (REF) | payer BC, OTHER ==
[2023-05-28 17:03] LABS: BASO % 0.3 % (0.0-1.0); EOS # 0.1 10^3/uL (0.0-0.5); EOS % 1.5 % (0.0-3.0); HEMATOCRIT 37.8 % (36.0-47.0); HEMOGLOBIN 12.1 g/dl (12.0-15.5); LYMPH # 1.6 10^3/uL (1.5-5.0); MEAN CORPUSCULAR HEMOGLOBIN 28.3 pg (27.0-33.0); MEAN CORPUSCULAR VOLUME 88.5 fl (80.0-96.0); MONO # 0.4 10^3/uL (0.0-0.8); MONO % 6.5 % (2.0-8.0); NEUTROPHILS # 4.3 10^3/uL (1.5-8.5); NEUTROPHILS % 66.4 % (36.0-66.0); PLATELET COUNT, AUTOMATED 257 10^3/uL (150-450); RED BLOOD COUNT 4.27 10^6/uL (4.00-5.40); WHITE BLOOD COUNT 6.5 10^3/uL (4.0-10.0)
[2023-05-28 17:43] LABS: IRON (FE) 82 UG/DL (50-170)
[2023-05-28 17:44] LABS: PERCENT SATURATION 24.5 % (13.2-45.0); TOTAL IRON BINDING CAPACITY 335 UG/DL (250-425)
[2023-05-28 17:47] LABS: ALBUMIN 3.9 G/DL (3.2-5.2); ALKALINE PHOSPHATASE 66 U/L (46-116); ALT/SGPT 33 U/L (7.0-40); AST/SGOT 21 U/L (<34); BILIRUBIN,TOTAL 0.7 MG/DL (0.3-1.2); BLOOD UREA NITROGEN 17 MG/DL (9-23); CALCIUM LEVEL 9.1 MG/DL (8.5-10.1); CARBON DIOXIDE LEVEL 28 MMOL/L (20-31); CHLORIDE LEVEL 106 MMOL/L (98-107); CHOLESTEROL LEVEL 191 MG/DL (<200); CHOLESTEROL RISK RATIO 3.57 (<5); CREATININE FOR GFR 0.72 MG/DL (0.55-1.30); FERRITIN 171.7 NG/ML (7.3-270.7); FOLATE > 24.0 NG/ML (>5.4); FREE T4 0.86 NG/DL (0.89-1.76); GLOMERULAR FILTRATION RATE > 60.0 (>60); GLUCOSE, FASTING 76 MG/DL (60-100); HDL CHOLESTEROL 53.4 MG/DL (>40); LDL CHOLESTEROL 118.2 MG/DL (<100); NON-HDL-C 137.6 MG/DL; POTASSIUM SERUM 4.2 MMOL/L (3.5-5.1); SODIUM LEVEL 137 MMOL/L (136-145); THYROID STIMULATING HORMONE 1.004 uIU/ML (0.55-4.78); TOTAL 25(OH) VITAMIN D 56.8 NG/ML (20.0-100.0); TOTAL PROTEIN 7.3 G/DL (5.7-8.2); TRIGLYCERIDES LEVEL 97 MG/DL (<150); VITAMIN B12 LEVEL 587 PG/ML (211-911)
== END ==
LOC: M LABDRWAD 16:24
PROVIDERS: ATTEND Nurse Practitioner Family
DX: Z00.00 Encounter for general adult medical examination without abnormal findings (principal); E55.9 Vitamin D deficiency, unspecified; D64.9 Anemia, unspecified

== ENCOUNTER → 2024-04-12 | Outpatient (REF) | payer BC, OTHER ==
[2024-04-12 14:25] LABS: BASO % 0.3 % (0.0-1.0); EOS # 0.1 10^3/uL (0.0-0.5); EOS % 1.7 % (0.0-3.0); HEMOGLOBIN 12.3 g/dl (12.0-15.5); LYMPH # 1.3 10^3/uL (1.5-5.0); LYMPH % 21.9 % (24.0-44.0); MEAN CORPUSCULAR HEMOGLOBIN 28.2 pg (27.0-33.0); MEAN CORPUSCULAR HGB CONC 32.4 g/dl (32.0-36.5); MEAN CORPUSCULAR VOLUME 87.2 fl (80.0-96.0); MONO # 0.4 10^3/uL (0.0-0.8); MONO % 7.1 % (2.0-8.0); NEUTROPHILS # 4.1 10^3/uL (1.5-8.5); NEUTROPHILS % 68.8 % (36.0-66.0); PLATELET COUNT, AUTOMATED 247 10^3/uL (150-450); RED BLOOD COUNT 4.36 10^6/uL (4.00-5.40); WHITE BLOOD COUNT 5.9 10^3/uL (4.0-10.0)
[2024-04-12 14:26] LABS: TOTAL IRON BINDING CAPACITY 307 UG/DL (250-425)
[2024-04-12 14:27] LABS: ALBUMIN 3.8 G/DL (3.2-5.2); ALKALINE PHOSPHATASE 70 U/L (35-104); ALT/SGPT 31 U/L (7.0-40); AST/SGOT 19 U/L (<34); BILIRUBIN,TOTAL 0.5 MG/DL (0.3-1.2); BLOOD UREA NITROGEN 13 MG/DL (9-23); CALCIUM LEVEL 9.8 MG/DL (8.5-10.1); CARBON DIOXIDE LEVEL 26 MMOL/L (20-31); CHLORIDE LEVEL 107 MMOL/L (98-107); CHOLESTEROL LEVEL 158 MG/DL (<200); CHOLESTEROL RISK RATIO 4.11 (<5); CREATININE FOR GFR 0.75 MG/DL (0.55-1.30); GLOMERULAR FILTRATION RATE > 60.0 (>60); GLUCOSE, FASTING 90 MG/DL (60-100); HDL CHOLESTEROL 38.4 MG/DL (>40); IRON (FE) 69 UG/DL (50-170); LDL CHOLESTEROL 103.8 MG/DL (<100); NON-HDL-C 119.6 MG/DL; PERCENT SATURATION 22.5 % (13.2-45.0); POTASSIUM SERUM 4.4 MMOL/L (3.5-5.1); SODIUM LEVEL 139 MMOL/L (136-145); TOTAL PROTEIN 7.3 G/DL (5.7-8.2); TRIGLYCERIDES LEVEL 79 MG/DL (<150)
[2024-04-12 14:30] LABS: FERRITIN 228.7 NG/ML (7.3-270.7); TOTAL 25(OH) VITAMIN D 74.8 NG/ML (20.0-100.0)
== END ==
LOC: M LABDRWAD 13:23 → M LAB REF 13:23
PROVIDERS: ATTEND Nurse Practitioner Family
DX: Z00.00 Encounter for general adult medical examination without abnormal findings (principal); E55.9 Vitamin D deficiency, unspecified; D50.9 Iron deficiency anemia, unspecified

== ENCOUNTER → 2025-04-04 | Outpatient (CLI) | payer BC ==
[~2025-04-04] MED LIST changes: -PHEN-239; +PHEN37.511
[2025-04-04 09:32] LABS: BASO # 0.0 10^3/uL (0.0-0.2); BASO % 0.3 % (0.0-1.0); EOS # 0.1 10^3/uL (0.0-0.5); EOS % 1.8 % (0.0-3.0); LYMPH # 1.3 10^3/uL (1.5-5.0); LYMPH % 20.5 % (24.0-44.0); MONO # 0.4 10^3/uL (0.0-0.8); MONO % 6.8 % (2.0-8.0); NEUTROPHILS # 4.4 10^3/uL (1.5-8.5); NEUTROPHILS % 70.4 % (36.0-66.0); PLATELET COUNT, AUTOMATED 264 10^3/uL (150-450)
[2025-04-04 10:02] LABS: ALT/SGPT 23 U/L (7.0-40); AST/SGOT 17 U/L (<34); CALCIUM LEVEL 9.2 MG/DL (8.5-10.1); CARBON DIOXIDE LEVEL 28 MMOL/L (20-31); CHLORIDE LEVEL 105 MMOL/L (98-107); CHOLESTEROL LEVEL 175 MG/DL (<200); CHOLESTEROL RISK RATIO 3.69 (<5); CREATININE FOR GFR 0.82 MG/DL (0.55-1.30); GLOMERULAR FILTRATION RATE > 90.0 (>60); IRON (FE) 78 UG/DL (50-170); LDL CHOLESTEROL 114.9 MG/DL (<100); NON-HDL-C 127.7 MG/DL; PERCENT SATURATION 25.2 % (13.2-45.0); POTASSIUM SERUM 4.5 MMOL/L (3.5-5.1); SODIUM LEVEL 142 MMOL/L (136-145); TRIGLYCERIDES LEVEL 64 MG/DL (<150)
[2025-04-04 10:04] LABS: TOTAL 25(OH) VITAMIN D 104.2 NG/ML (20.0-100.0)
== END ==
LOC: M LAB 08:58
PROVIDERS: ATTEND Nurse Practitioner Family
DX: Z00.00 Encounter for general adult medical examination without abnormal findings (principal)

== ENCOUNTER → 2025-04-06 | Outpatient (CLI) | payer BC | LOC: M ADAMS 07:56 | PROVIDERS: ATTEND Nurse Practitioner Family | DX: M79.672 Pain in left foot (principal) ==

== ENCOUNTER → 2025-04-25 | Outpatient (REF) | payer BC | LOC: M PLALAB 14:01 | PROVIDERS: ATTEND Specialist | DX: Z12.4 Encounter for screening for malignant neoplasm of cervix (principal); Z53.9 Procedure and treatment not carried out, unspecified reason ==

== ENCOUNTER → 2025-04-25 | Outpatient (REF) | payer BC ==
[2025-04-27 18:27] LABS: HPV APTIMA Not Detected (Not Detected)
== END ==
LOC: M SFHCWAGY 15:49
PROVIDERS: ATTEND Specialist
DX: Z12.4 Encounter for screening for malignant neoplasm of cervix (principal)
CPT/HCPCS: 87624; G0123